=== PATIENT | male | born 1975 ===

== ENCOUNTER → 2018-12-27 23:17 | Outpatient (REF) | payer BC, OTHER, SELFPAY ==
[2018-12-28 00:45] LABS: Add Manual Diff / Slide Review NO; Basophils Absolute Auto 100 /uL (0-100); Basophils Percent Auto 0.9 % (0-2); Eosinophils Absolute Auto 100 /uL (0-450); Eosinophils Percent Auto 1.8 % (2-4); Hematocrit 49.3 % (41-53); Hemoglobin 16.9 g/dL (13.5-17.5); Lymphocytes Absolute Auto 1200 /uL (1100-4500); Mean Corpuscular HGB Conc 34.3 % (30-36); Mean Corpuscular Volume 93.3 fL (80-100); Monocytes Absolute Auto 600 /uL (0-900); Monocytes Percent Auto 9.8 % (3-14); Neutrophils Absolute Auto 4100 /uL (1500-7000); Neutrophils Percent Auto 67.5 % (50-75); Platelet Count 194 X10^3/uL (150-400); Red Blood Cell Count 5.29 X10^6/uL (4.5-5.9); Red Cell Distribution Width 14.3 % (11.6-14.8); White Blood Cell Count 6.1 X10^3/uL (4.5-11.0)
[2018-12-30 15:19] LABS: Sex Hormone Binding Globulin 22 nmol/L (10-50)
[2018-12-30 19:29] LABS: Estradiol 28 pg/mL (< 40)
[2018-12-31 15:21] LABS: PSA Total 2.32 ng/mL (< 4.01)
[2019-01-01 13:36] LABS: Testosterone Free 54.9 pg/mL (35.0-155.0); Testosterone Total 383 ng/dL (250-1100)
== END ==
LOC: LAB 23:17
PROVIDERS: Visit Provider Naturopath
DX: E29.1 Testicular hypofunction (principal)
CPT/HCPCS: 36415; 82670; 84153; 84154; 84270; 84402; 84403; 85025